=== PATIENT | male | born 1955 | race Hispanic/Latino ===

== ENCOUNTER → 2020-02-12 | Outpatient (CLI) | payer OTHER | END | disposition home or self-care (01) | LOC: RAH 10:50 | PROVIDERS: ATTEND Family Medicine | DX: Z13.6 Encounter for screening for cardiovascular disorders (principal) | CPT/HCPCS: 75571 ==

== ENCOUNTER → 2022-01-10 | Outpatient (CLI) | payer OTHER | END | disposition home or self-care (01) | LOC: SHCH 14:14 | PROVIDERS: ATTEND Internal Medicine Cardiovascular Disease | DX: I08.2 Rheumatic disorders of both aortic and tricuspid valves (principal); E11.9 Type 2 diabetes mellitus without complications; E78.5 Hyperlipidemia, unspecified | CPT/HCPCS: 93306 ==